=== PATIENT | male | born 1965 | race African-American/Black ===

== ENCOUNTER 2019-05-14 07:38 | Outpatient (CLI) | payer OTHER ==
--- NOTE | 2019-05-14 09:02 | MRI ---
MRI Lower Ext Jt Rt WO Con History: S 99.91D injury of right ankle Comparison: Ankle radiographs April and March 2019 Findings: Ligaments: The AITFL is partially torn as well as the PITFL. The ATFL is intact along with the CFL. Mild edema within the deltoid ligament, the superficial and deep portions. Superomedial band of the spring ligament is intact. The inferior longitudinal and medial plantar obli que bands are intact. Tendons: Logical split tear peroneus brevis at the level of the lateral malleolar tip for length of 2 cm before reconstituting. The Achilles tendon is intact. Extensor tendons are intact. Low-grade tenosynovial fluid of the flexo r tendons. Bones: Healing fracture posterior malleolus. The subtalar joints are intact. No midfoot fracture. Rocha ited evaluation of the Lisfranc interval appears been maintained. No fifth metatarsal tuberosity fracture. Vascular remnant of the anterior process of the calcaneus at the tarsal sinus. Muscles: There is edema within the abductor digit minimi muscle. Remainder of the musculature is inta ct. Soft tissues: The plantar fascia is intact. Large varices of the tarsal tunnel extending along the ex pected location of the lateral plantar nerve. Impression: 1. Healing posterior malleolar fracture. 2. Tear of the AITFL and PITFL without syndesmotic widening. There is granulation tissue along the he aling tears. 3. Longitudinal split tear peroneus brevis tendon at the level of the lateral malleolar tip for lengt h of 2 cm before reconstituting. 4. 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
== END 2019-05-14 07:39 | disposition home or self-care (01) ==
LOC: TBSIIMAG 07:38
PROVIDERS: ATTEND Family Medicine
DX: S82.891D Other fracture of right lower leg, subsequent encounter for closed fracture with routine healing (principal)